=== PATIENT | female | born 1975 | race Hispanic/Latino ===

== ENCOUNTER 2019-11-10 17:38 | Emergency (ER) | payer OTHER ==
[~2019-11-10] VITALS: Ht 160 cm; Wt 90.7 kg
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
--- OUTSIDE RECORDS SUMMARY | 2019-11-10 18:16 | XMS REPORT | Continuity of Care Document ---
Author Author [facility] t Organization [facility] Address [address] [place] [address] Phone Unavailable Care Team Providers Care Rn Occupational Name Role Phone RAUL, DR URBINA Attjavier Unavailable RAUL, DR CARLITOS Bravo Unavailable Payers Payer Name Policy Type Policy Number Effective Date Expiration Date S ource Problems This patient has no known problems. Allergies, Adverse Reactions, Alerts Allergy Name Allergy Type Status Severity Reaction(s) Onset Date Inacti ve Date Treating Clinician Comments Source No Known Allergies DA Active U 2019-07-08 00:00:00 [facility] No Known Allergies DA Active U 2019-07-07 00:00:00 [facility] No Known Allergies DA Active U 2016-10-02 00:00:00 [facility] Medications This patient has no known medications. Procedures This patient has no known procedures. Results Test Description Test Time Test Comments Results Result Comments Source UTERUS,OTHER THAN PROLAPSE/HERNANDO 2019-07-11 15:57:00 DATE: 07/11/19 [facility] PAGE 1 RUN TIME: 8285 Specimen Inquiry RUN USER: INTERFACE PATIENT: ZAIRE CONNELLY LOC: [facility] #: [id number] AGE/SX: 43/F ROOM: [facility] RE07/09/19REG DR: Vahe Hannah MD : 75 BED: A DIS: 07/10/19 STATUS: DIS Abel TLOC: SPEC #: [id number] RECD: 07/09/19 STATUS: JONNATHAN RE #: [id number] SHANAE: 07/09/19- SUBM DR: Vahe Hannah MD ENTERED: 07/10/19 SP TYPE: UTERUSOTH OTHR DR: ORDERED: LEVEL V SURGICA CODES: O58047 - UTERUS, NOS PROCEDURES: LEVEL V SURGICA (Incomplete) TISSUES: UTERUS, NOS - UTERUS, CERVIX AND BILATERAL FALLOPIAN TUBES CLINICAL HISTORY 43 year old, pelvic pain, menorrhagia, dysmenorrhea (kr) FINAL DIAGNOSIS Uterus, bilateral fallopian tubes, hysterectomy and bilateral salpingectomy: cervix - no significant pathologic alteration endometrium - benign, secretory phase myometrium - adenomyosis - leiomyoma uterine serosa - benign fibrous adhesions bilateral fallopian tubes - benign, one with paratubal cyst CPT code(s): 27747 [facility]/kr GROSS DESCRIPTION ANATOMIC SOURCE OF TISSUE (per Requisition): Uterus, cervix, bilateral tubes The specimen is received in formalin, labeled with the patient's name and designated "uterus, cervix, bilateral tubes". The specimen consists of a 205 gm, 13.0 x 8.5 x 7.0 cm intact uterus with an attached cervix and detached fallopian tubes (4.5 and 5.0 cm in length). The uterine serosa is louis- pink and nodular with a few adhesions. The 3 cm ectocervix displays a 0.8 cm slit-like os. The endometrium is louis-red, focally hemorrhagic, slightly nodular and lush with a thickness measuring up to 0.6 cm. The myometrium is trabeculated with a wall thickness measuring up to 2.0 cm. There are a few hemorrhagic myometrial cysts, 0.1 and 0.3 cm. Additionally, within the myometrium there is a 0.5 cm well-circumscribed nodule. The fallopian tubes are pink-purple and hyperemic with pin-point lumens. The shorter CONTINUED ON NEXT PAGE RUN DATE: 07/11/19 [facility] PAGE 2 RUN TIME: 1835 Specimen Inquiry RUN USER: INTERFACE SPEC #: [id number] PATIENT: ZAIRE CONNELLYLiset #[id number] (Continued)-------- ---- GROSS DESCRIPTION (Continued) tube has no fimbriated end. Section code: A1 - cervix A2 - anterior endomyometrium A3 - posterior endomyometrium A4 - serosal adhesions, myometrial cyst and nodule A5 - veterans contact representative sections of short segment of fallopian tube A6 - veterans contact representative sections of long segment of fallopian tube esthela 07/10/19 Signed Ame Todd MD 07/11/19 1557 END OF REPORT HGB HCT 2019-07-10 06:34:00 Test Item HEMOGLOBIN (test code = HGB) 10.7 g/dL 10.7-13.9 N HEMATOCRIT (test code = HCT) 32.5 % 32.1-42.1 N Novel Coronavirus 2018 [id number] 06:31:00* Test Item Value Reference Range Interpretation Comments Novel Coronavirus 2018 Inhouse (test code = COVNONPUI) Negative Negative Novel Coronavirus 2019 [id number] 06:30:00* Test Item Value Reference Range Interpretation Comments Novel Coronavirus 2018 Inhouse (test code = COVNONPUI) Negative Negative PROTHROMBIN [id number] 10:39:00* Test Item Value Reference Range Interpretation Comments PROTHROMBIN TIME PATIENT (test code = PTP) 12.1 secs 10.4-12.4 N THROMBOPLASTIN TIME [id number] 10:39:00* Test Item Value Reference Range Interpretation Comments THROMBOPLASTIN TIME PARTIAL (test code = PTT) 41.0 secs 22-38 H CHEMISTRY 7 [id number] 10:36:00* Test Item Value Reference Range Interpretation Comments SODIUM (test code = NA) 139 mEq/L 135-145 N POTASSIUM (test code = K) 4.5 mEq/L 3.5-5.0 N CHLORIDE (test code = CL) 106 mEq/L 100-115 N CARBON DIOXIDE (test code = CO2) 25 mEq/L 22-31 N ANION GAP (test code = GAP) 12.80 10-20 N GLUCOSE (test code = GLU) 86 mg/dL 65-110 N BLOOD UREA NITROGEN (test code = BUN) 17 mg/dL 7-18 N GLOMERULAR FILTRATION RATE (test code = GFR) 109 ml/min >60 N CREATININE (test code = CREAT) 0.6 mg/dL 0.5-1.0 N CALCIUM (test code = CA) 8.4 mg/dL 8.4-10.2 N HCG SERUM [id number] 10:36:00* Test Item Value Reference Range Interpretation Comments HCG SERUM QUAL (test code = HCGQL) NEGATIVE URINALYSIS [id number] 10:32:00* Test Item Value Reference Range Interpretation Comments UA COLOR (test code = COLU) YELLOW YELLOW UA APPEARANCE (test code = APPU) Slightly-Cloudy CLEAR UA GLUCOSE DIPSTICK (test code = DGLUU) NEGATIVE NEG UA BILIRUBIN DIPSTICK (test code = BILU) NEGATIVE NEG UA KETONE DIPSTICK (test code = KETU) NEGATIVE NEG UA SPECIFIC GRAVITY (test code = SGU) 1.029 1.001-1.035 N UA BLOOD DIPSTICK (test code = KRYSTLE) NEG NEG UA PH DIPSTICK (test code = NATALIE) 5.0 5-9 UA PROTEIN DIPSTICK (test code = PROU) NEGATIVE NEG UA UROBILINIOGEN DIPSTICK (test code = URO) NEGATIVE mg/dL NEG UA NITRITE DIPSTICK (test code = OLAYINKA) NEG NEG UA LEUKOCYTE ESTERASE DIPSTICK (test code = LEUU) TRACE NEG A UA WBC (test code = WBCU) 3-5 #/hpf NONE SEEN A UA RBC (test code = RBCU) 6-10 #/hpf NONE SEEN A UA EPITHELIAL CELLS (test code = EPIU) FEW #/HPF RARE-FEW UA BACTERIA (test code = BACU) RARE /HPF RARE-FEW UA MUCUS (test code = MUCU) 2+ NONE SEEN URINE SAMPLE: CLEAN CATCHCHEMISTRY 7 [id number] 10:25:00* Test Item Value Reference Range Interpretation Comments SODIUM (test code = NA) mEq/L 135-145 POTASSIUM (test code = K) mEq/L 3.5-5.0 CHLORIDE (test code = CL) mEq/L 100-115 CARBON DIOXIDE (test code = CO2) mEq/L 22-31 ANION GAP (test code = GAP) 10-20 GLUCOSE (test code = GLU) mg/dL 65-110 BLOOD UREA NITROGEN (test code = BUN) mg/dL 7-18 CREATININE (test code = CREAT) mg/dL 0.5-1.0 CALCIUM (test code = CA) mg/dL 8.4-10.2 HCG SERUM [id number] 10:25:00* Test Item Value Reference Range Interpretation Comments HCG SERUM QUAL (test code = HCGQL) NEGATIVE CBC W/AUTO [id number] 10:13:00* Test Item Value Reference Range Interpretation Comments WHITE BLOOD CELL (test code = WBC) 7.6 K/mm3 6.6-12.1 N RED BLOOD CELL (test code = RBC) 4.06 M/mm3 3.45-5.01 N HEMOGLOBIN (test code = HGB) 12.0 g/dL 10.7-13.9 N HEMATOCRIT (test code = HCT) 37.1 % 32.1-42.1 N MEAN CELL VOLUME (test code = MCV) 91 fL 84.1-94.8 N MEAN CELL HGB (test code = MCH) 29.6 pg 27-35 N MEAN CELL HGB CONCETRATION (test code = MCHC) 32.3 gm/dL 32.2-34. 1 N RED CELL DISTRIBUTION WIDTH (test code = RDW) 15.3 % 12.4-16. 5 N PLATELET COUNT (test code = PLT) 210 K/mm3 133-385 N MEAN PLATELET VOLUME (test code = MPV) 12.1 fl 9.1-12.7 N NEUTROPHIL % (test code = NT%) 69.6 % 56.5-79.4 N LYMPHOCYTE % (test code = LY%) 20.5 % 14.3-34.3 N MONOCYTE % (test code = MO%) 8.3 % 5.1-10.4 N EOSINOPHIL % (test code = EO%) 0.9 % 0.1-3.0 N BASOPHIL % (test code = BA%) 0.4 % 0.1-1.0 N NEUTROPHIL # (test code = NT#) 5.3 K/mm3 LYMPHOCYTE # (test code = LY#) 1.6 K/mm3 MONOCYTE # (test code = MO#) 0.6 K/mm3 EOSINOPHIL # (test code = EO#) 0.07 K/mm3 BASOPHIL # (test code = BA#) 0.0 K/mm3 RBC MORPHOLOGY REQUIRED (test code = RBCM) NORMAL NORMAL PLATELET MORPHOLOGY REQUIRED (test code = PLTMR) NORMAL ANTONIETTA L CHEMISTRY 7 [id number] 19:27:00* Test Item Value Reference Range Interpretation Comments SODIUM (test code = NA) 141 mEq/L 135-145 N POTASSIUM (test code = K) 4.0 mEq/L 3.5-5.0 N CHLORIDE (test code = CL) 105 mEq/L 100-115 N CARBON DIOXIDE (test code = CO2) 27 mEq/L 22-31 N ANION GAP (test code = GAP) 12.70 10-20 N GLUCOSE (test code = GLU) 75 mg/dL 65-110 N BLOOD UREA NITROGEN (test code = BUN) 10 mg/dL 7-18 N GLOMERULAR FILTRATION RATE (test code = GFR) 109 ml/min >60 N CREATININE (test code = CREAT) 0.6 mg/dL 0.5-1.0 N CALCIUM (test code = CA) 8.4 mg/dL 8.4-10.2 N HCG SERUM [id number] 19:27:00* Test Item Value Reference Range Interpretation Comments HCG SERUM QUAL (test code = HCGQL) NEGATIVE CHEMISTRY 7 [id number] 19:21:00* Test Item Value Reference Range Interpretation Comments SODIUM (test code = NA) mEq/L 135-145 POTASSIUM (test code = K) mEq/L 3.5-5.0 CHLORIDE (test code = CL) mEq/L 100-115 CARBON DIOXIDE (test code = CO2) mEq/L 22-31 ANION GAP (test code = GAP) 10-20 GLUCOSE (test code = GLU) mg/dL 65-110 BLOOD UREA NITROGEN (test code = BUN) mg/dL 7-18 CREATININE (test code = CREAT) mg/dL 0.5-1.0 CALCIUM (test code = CA) mg/dL 8.4-10.2 HCG SERUM [id number] 19:21:00* Test Item Value Reference Range Interpretation Comments HCG SERUM QUAL (test code = HCGQL) NEGATIVE URINALYSIS [id number] 19:11:00* Test Item Value Reference Range Interpretation Comments UA COLOR (test code = COLU) YELLOW UA APPEARANCE (test code = APPU) CLEAR UA GLUCOSE DIPSTICK (test code = DGLUU) NEGATIVE UA BILIRUBIN DIPSTICK (test code = BILU) NEGATIVE UA KETONE DIPSTICK (test code = KETU) NEGATIVE UA SPECIFIC GRAVITY (test code = SGU) 1.001-1.035 UA BLOOD DIPSTICK (test code = KRYSTLE) NEGATIVE UA PH DIPSTICK (test code = NATALIE) 5-9 UA PROTEIN DIPSTICK (test code = PROU) NEGATIVE UA UROBILINIOGEN DIPSTICK (test code = URO) mg/dL NEG UA NITRITE DIPSTICK (test code = OLAYINKA) NEGATIVE UA LEUKOCYTE ESTERASE DIPSTICK (test code = LEUU) NEG UA WBC (test code = WBCU) 0-2 #/hpf NONE SEEN UA RBC (test code = RBCU) 0-2 #/hpf NONE SEEN UA EPITHELIAL CELLS (test code = EPIU) RARE #/HPF RARE-FEW UA BACTERIA (test code = BACU) NEGATIVE /HPF RARE-FEW UA MUCUS (test code = MUCU) RARE NONE SEEN URINE SAMPLE: CLEAN CATCHURINALYSIS [id number] 19:11:00* Test Item Value Reference Range Interpretation Comments UA COLOR (test code = COLU) YELLOW YELLOW UA APPEARANCE (test code = APPU) CLEAR CLEAR UA GLUCOSE DIPSTICK (test code = DGLUU) NEGATIVE NEG UA BILIRUBIN DIPSTICK (test code = BILU) NEGATIVE NEG UA KETONE DIPSTICK (test code = KETU) NEGATIVE NEG UA SPECIFIC GRAVITY (test code = SGU) 1.018 1.001-1.035 N UA BLOOD DIPSTICK (test code = KRYSTLE) NEG NEG UA PH DIPSTICK (test code = NATALIE) 5.0 5-9 UA PROTEIN DIPSTICK (test code = PROU) NEGATIVE NEG UA UROBILINIOGEN DIPSTICK (test code = URO) NEGATIVE mg/dL NEG UA NITRITE DIPSTICK (test code = OLAYINKA) NEG NEG UA LEUKOCYTE ESTERASE DIPSTICK (test code = LEUU) NEG NEG UA WBC (test code = WBCU) 0-2 #/hpf NONE SEEN UA RBC (test code = RBCU) 0-2 #/hpf NONE SEEN UA EPITHELIAL CELLS (test code = EPIU) RARE #/HPF RARE-FEW UA BACTERIA (test code = BACU) NEGATIVE /HPF RARE-FEW UA MUCUS (test code = MUCU) RARE NONE SEEN URINE SAMPLE: CLEAN CATCHPROTHROMBIN [id number] 19:07:00* Test Item Value Reference Range Interpretation Comments PROTHROMBIN TIME PATIENT (test code = PTP) 10.9 secs 10.4-12.4 N THROMBOPLASTIN TIME [id number] 19:07:00* Test Item Value Reference Range Interpretation Comments THROMBOPLASTIN TIME PARTIAL (test code = PTT) 33.9 secs 22-38 N CBC W/AUTO [id number] 18:46:00* Test Item Value Reference Range Interpretation Comments WHITE BLOOD CELL (test code = WBC) 6.9 K/mm3 6.6-12.1 N RED BLOOD CELL (test code = RBC) 3.87 M/mm3 3.45-5.01 N HEMOGLOBIN (test code = HGB) 10.7 g/dL 10.7-13.9 N HEMATOCRIT (test code = HCT) 34.6 % 32.1-42.1 N MEAN CELL VOLUME (test code = MCV) 89 fL 84.1-94.8 N MEAN CELL HGB (test code = MCH) 27.6 pg 27-35 N MEAN CELL HGB CONCETRATION (test code = MCHC) 30.9 gm/dL 32.2-34. 1 L RED CELL DISTRIBUTION WIDTH (test code = RDW) 13.7 % 12.4-16. 5 N PLATELET COUNT (test code = PLT) 228 K/mm3 133-385 N MEAN PLATELET VOLUME (test code = MPV) 11.8 fl 9.1-12.7 N NEUTROPHIL % (test code = NT%) 61.1 % 56.5-79.4 N LYMPHOCYTE % (test code = LY%) 28.2 % 14.3-34.3 N MONOCYTE % (test code = MO%) 9.2 % 5.1-10.4 N EOSINOPHIL % (test code = EO%) 1.0 % 0.1-3.0 N BASOPHIL % (test code = BA%) 0.4 % 0.1-1.0 N NEUTROPHIL # (test code = NT#) 4.2 K/mm3 LYMPHOCYTE # (test code = LY#) 1.9 K/mm3 MONOCYTE # (test code = MO#) 0.6 K/mm3 EOSINOPHIL # (test code = EO#) 0.07 K/mm3 BASOPHIL # (test code = BA#) 0.0 K/mm3 RBC MORPHOLOGY REQUIRED (test code = RBCM) NORMAL NORMAL PLATELET MORPHOLOGY REQUIRED (test code = PLTMR) NORMAL ANTONIETTA L URINE [id number] 11:41:00* Test Item Value Reference Range Interpretation Comments PREG UR (test code = PGU) NEGATIVE NEGATIVE
[2019-11-10] MEDS ORDERED: GABAPENTIN 300 MG CAP PO SCH (18:30)
[2019-11-10] MEDS ORDERED: METHYLPREDNISOLONE SOD SUCC 125 MG/2ML VIAL IM ONE (18:30)
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
[2019-11-10] MEDS ORDERED: DIAZEPAM 5 MG TAB PO ONE (19:00)
[2019-11-10] MEDS ORDERED: HYDROCODONE/APAP 10MG-325MG TAB PO ONE (19:00)
[2019-11-10] MEDS ORDERED: DIAZEPAM 2 MG TAB PO ONE (19:00)
--- NOTE | 2019-11-10 19:26 | Diagnostic Imaging Report ---
History: Left Neck pain Comparison studies: None Technique: Axial images were obtained through the cervical region. Coronal and sagittal images reconstructed from the axial data. Dose modulation, iterative reconstruction, and/or weight based adjustment of the mA/kV was utilized to reduce the radiation dose to as low as reasonably achievable. Intravenous contrast: None Findings: Airway: Patent. Atlantoaxial articulation: Intact Alignment: Straightening of the usual lordosis is probably positional. No scoliosis. Cervicomedullary junction: No abnormalities. Patent foramen magnum. Soft tissues: No gross abnormalities. Vertebrae: No fractures, neoplasm or infection. Degenerative changes: Mildly degenerated disc and spinal canal stenosis at C5-6 due to a disc osteophyte complex. Otherwise, the spinal canal is patent. Patent foramina in spite of mild right uncovertebral arthrosis at C5-6. IMPRESSION: 1. No acute abnormalities. 2. No findings to explain patient's left neck pain. 3. Mild degenerative changes at C5-6 as described Signed by: Dr. Bryce Camargo M.D. on 11/10/2019 7:23 PM
[2019-11-10] MEDS ORDERED: KETOROLAC TROME10 MG PO (19:41)
[2019-11-10] MEDS ORDERED: ROBAXIN-750750 MG PO (19:41)
[2019-11-10] MEDS ORDERED: PREDNISONE20 MG PO (19:41)
[2019-11-10] MEDS ORDERED: GABAPENTIN300 MG PO (19:41)
== END 2019-11-10 20:11 | disposition home or self-care (01) ==
LOC: ER 18:14
DX: M54.12 Radiculopathy, cervical region (principal); M25.512 Pain in left shoulder; V53.6XXA Passenger in pick-up truck or van injured in collision with car, pick-up truck or van in traffic accident, initial encounter; Y92.488 Other paved roadways as the place of occurrence of the external cause
CPT/HCPCS: 72125; 99283; J2930